=== PATIENT | female | born 1960 | race Caucasian/White ===

== ENCOUNTER 2017-03-09 10:40 | Emergency (ER) | payer SELFPAY ==
[2007-09-13 15:35] VITALS: BP 99/56
[~2017-03-09] VITALS: Ht 175.3 cm; Wt 113.6 kg
[~2017-03-09 10:40] MED LIST: ADVAIR IH; ALBUTEROL0.09 MG/A1 IH; AMOXICILLIN 50500 MG PO; AMOXICILLIN 8751 TAB PO; CARAFATE 1GM1 G PO; CIPRO 100MG TA100 MG PO; DOXYCYCLINE 10100 MG PO; FLEXERIL 1010 MG/TAB PO; FLEXERIL10 MG PO; FORADIL; IPRATROPIUM BROM3 M1 IH; MEDROL 4MG DOSPA4 MG PO; METFORMIN; NO HOME MEDICATIONS; NORCO 325 MG-51 TAB PO; PEPCID 20MG TAB20 MG PO; PERCOCET 5/321 UDTAB PO; PREDNISONE20 MG PO; PROAIR HFA0.09 MG/AC IH; PROVENTIL0.09 MG/A1 IH; RT ALBUTER2.5 MG/0.5 IH; SINGULAIR10 MG PO; TYLENOL EXTRA500 M1 PO; VENTOLIN0.09 MG IH; VICODIN 5/5001 UDTAB PO; ZITHROMAX 250M250 MG PO; [UNRECOGNIZED DRUG - OTHER]; arthritis med
[2017-03-09 10:43] VITALS: TEMP 99.1
[2017-03-09 11:43] LABS: INFLUENZA A NEGATIVE; INFLUENZA B NEGATIVE
[2017-03-09] MEDS ORDERED: ALBUTEROL0.83 MG/ML IH (13:28)
[2017-03-09] MEDS ORDERED: AMOXICILLIN 8751 TAB PO (13:28)
[2017-03-09 14:14] VITALS: BP 116/71; PULSE 95
== END 2017-03-09 14:15 | disposition home or self-care (01) ==
LOC: COL.ER 10:40
PROVIDERS: Family Medicine
DX: J20.9 Acute bronchitis, unspecified (principal); J44.9 Chronic obstructive pulmonary disease, unspecified

== ENCOUNTER 2017-12-11 20:06 | Emergency (ER) | payer BC ==
[2007-09-13 15:35] VITALS: BP 99/56
[~2017-12-11] VITALS: Ht 175.3 cm; Wt 110.9 kg
[~2017-12-11 20:06] MED LIST changes: +ALBUTEROL0.83 MG/ML IH
[2017-12-11 20:38] VITALS: TEMP 98.1
[2017-12-11 21:28] LABS: COLLECTION METHOD CLEAN CATCH
[2017-12-11] MEDS ORDERED: GLUCOPHAGE500 MG/TAB (21:31)
[2017-12-11] MEDS ORDERED: JANUVIA 100MG100 MG PO (21:31)
[2017-12-11] MEDS ORDERED: GLUCOTROL 5M5 MG/TAB (21:31)
[2017-12-11] MEDS ORDERED: TRULICITY0.75 MG/0. (21:32)
[2017-12-11] MEDS ORDERED: [UNRECOGNIZED DRUG - REMARK] (21:33)
[2017-12-11 21:35] LABS: BASO % 0.4 % (0.0-2.0); EOS # 0.2 (0.0-0.7); EOS % 1.9 % (0-4.0); GRAN # 6.4 (1.4-6.5); GRAN % 59.6 % (42.2-75.2); HEMATOCRIT 47.4 % (37.0-47.0); HEMOGLOBIN 16.1 g/dl (12.5-16.0); LYMPH # 3.3 (1.2-3.4); LYMPH % 30.4 % (20.0-51.0); MEAN CELL VOLUME 90 fl (80.0-100.0); MEAN CORPUSCULAR HEMOGLOBIN 30 pg (27.0-31.0); MEAN CORPUSCULAR HGB CONC 34 g/dl (33.0-37.0); MEAN PLATELET VOLUME 8.9 fl (7.4-10.4); MONO # 0.8 (0.1-0.6); MONO % 7.3 % (1.7-9.3); PLATELET COUNT 258 K/mm3 (130-400); RED BLOOD COUNT 5.29 M/mm3 (4.10-5.30); REDCELL DISTRIBUTION WIDTH-CV 12.7 % (11.5-14.5)
[2017-12-11 21:37] LABS: PH 5 (5-8); SQUAMOUS EPITHELIAL 0-2 /hpf; URINE APPEARANCE Clear; URINE BACTERIA Rare /hpf; URINE BILIRUBIN Negative (NEGATIVE); URINE BLOOD Negative (NEGATIVE); URINE COLOR Yellow; URINE GLUCOSE Negative (NEGATIVE); URINE KETONE Trace (NEGATIVE); URINE LEUKOCYTE ESTERASE Negative (NEGATIVE); URINE NITRATE Negative (NEGATIVE); URINE PROTEIN(semi-quant) Negative (NEGATIVE); URINE RBC 0-2 /hpf
[2017-12-11 21:41] LABS: ALBUMIN 4.2 gm/dL (3.5-5.0); BILIRUBIN,TOTAL 0.4 mg/dL (0.0-1.0); CALCIUM 9.1 mg/dL (8.4-10.2); CREATININE, serum 0.76 mg/dL (0.52-1.25); POTASSIUM 4.2 mmol/L (3.4-5.0); TOTAL PROTEIN 7.4 gm/dL (6.4-8.2)
[2017-12-11] MEDS ORDERED: ZOFRAN 4MG T4 MG/TAB PO (23:19)
[2017-12-11] MEDS ORDERED: BENTYL 20MG20 MG/TAB PO (23:19)
[2017-12-11 23:50] VITALS: BP 125/71; PULSE 82
== END 2017-12-11 23:50 | disposition home or self-care (01) ==
LOC: COL.ER 20:06
PROVIDERS: Emergency Medicine
DX: R10.31 Right lower quadrant pain (principal); R11.2 Nausea with vomiting, unspecified; E11.9 Type 2 diabetes mellitus without complications; K58.9 Irritable bowel syndrome, unspecified; F17.210 Nicotine dependence, cigarettes, uncomplicated; Z79.84 Long term (current) use of oral hypoglycemic drugs; Z90.49 Acquired absence of other specified parts of digestive tract; Z87.19 Personal history of other diseases of the digestive system
CPT/HCPCS: J0500; J2270; J2405; J7030; Q9967

== ENCOUNTER 2018-08-19 13:18 | Emergency (ER) | payer BC ==
[2007-09-13 15:35] VITALS: BP 99/56
[~2018-08-19] VITALS: Ht 175.3 cm; Wt 113.6 kg
[~2018-08-19 13:18] MED LIST changes: +BENTYL 20MG20 MG/TAB PO; +GLUCOPHAGE500 MG/TAB; +GLUCOTROL 5M5 MG/TAB; +JANUVIA 100MG100 MG PO; +TRULICITY0.75 MG/0.; +ZOFRAN 4MG T4 MG/TAB PO; +[UNRECOGNIZED DRUG - REMARK]
[2018-08-19 14:09] LABS: BASO % 0.3 % (0.0-2.0); EOS # 0.1 (0.0-0.7); EOS % 0.4 % (0-4.0); GRAN # 11.7 (1.4-6.5); GRAN % 78.9 % (42.2-75.2); HEMATOCRIT 46.7 % (37.0-47.0); HEMOGLOBIN 16.2 g/dl (12.5-16.0); LYMPH # 2.1 (1.2-3.4); LYMPH % 14.1 % (20.0-51.0); MEAN CELL VOLUME 89 fl (80.0-100.0); MEAN CORPUSCULAR HEMOGLOBIN 31 pg (27.0-31.0); MEAN CORPUSCULAR HGB CONC 35 g/dl (33.0-37.0); MEAN PLATELET VOLUME 8.8 fl (7.4-10.4); MONO # 0.8 (0.1-0.6); MONO % 5.6 % (1.7-9.3); PLATELET COUNT 306 K/mm3 (130-400); RED BLOOD COUNT 5.24 M/mm3 (4.10-5.30); REDCELL DISTRIBUTION WIDTH-CV 12.9 % (11.5-14.5)
[2018-08-19 14:18] LABS: CALCIUM 9.6 mg/dL (8.4-10.2); CREATININE, serum 0.66 (0.52-1.25); POTASSIUM 4.4 mmol/L (3.4-5.0)
[2018-08-19] MEDS ORDERED: NORCO 325 MG-51 TAB PO (16:32)
[2018-08-19 17:29] VITALS: BP 138/68; PULSE 79; TEMP 98
== END 2018-08-19 17:49 | disposition home or self-care (01) ==
LOC: COL.ER 13:18
PROVIDERS: Emergency Medicine
DX: S42.302A Unspecified fracture of shaft of humerus, left arm, initial encounter for closed fracture (principal); W01.0XXA Fall on same level from slipping, tripping and stumbling without subsequent striking against object, initial encounter; Y92.009 Unspecified place in unspecified non-institutional (private) residence as the place of occurrence of the external cause
CPT/HCPCS: J1885; J3010; J7030; Q4021

== ENCOUNTER 2019-01-21 09:59 | Inpatient (IN) | payer BC ==
[~2019-01-21] VITALS: Ht 175.3 cm; Wt 112.0 kg
[~2019-01-21 09:59] MED LIST changes: -GLUCOPHAGE500 MG/TAB; +GLUCOPHAGE500 MG/TAB PO; -GLUCOTROL 5M5 MG/TAB; +GLUCOTROL 5M5 MG/TAB PO; -TRULICITY0.75 MG/0.; +TRULICITY0.75 MG/0. SQ
[2019-01-21] MEDS ORDERED: TRELEGY ELLIPT1 EACH IH (13:53)
[2019-01-21 15:22] LABS: ARTERIAL BLD GAS O2 SATURATION 92.5 % (92-100); ARTERIAL BLD GAS TCO2 CT 25.7; ARTERIAL BLOOD GAS BASE EXCESS -0.1 (-2-2); ARTERIAL BLOOD GAS HCO3 24.4 meq/L (22-26); ARTERIAL BLOOD GAS PCO2 39.8 mmHg (35-45); ARTERIAL BLOOD GAS PO2 62.9 mmHg (80-100); ARTERIAL BLOOD GAS pH 7.41 (7.35-7.45)
[2019-01-21 15:27] LABS: BASO % 0.5 % (0.0-2.0); EOS % 0.4 % (0-4.0); GRAN # 4.7 (1.4-6.5); GRAN % 59.9 % (42.2-75.2); HEMATOCRIT 46.3 % (37.0-47.0); HEMOGLOBIN 15.4 g/dl (12.5-16.0); LYMPH # 2.3 (1.2-3.4); MEAN CELL VOLUME 90 fl (80.0-100.0); MEAN CORPUSCULAR HEMOGLOBIN 30 pg (27.0-31.0); MEAN CORPUSCULAR HGB CONC 33 g/dl (33.0-37.0); MEAN PLATELET VOLUME 9.1 fl (7.4-10.4); MONO # 0.8 (0.1-0.6); MONO % 9.8 % (1.7-9.3); PLATELET COUNT 201 K/mm3 (130-400); RED BLOOD COUNT 5.12 M/mm3 (4.10-5.30); REDCELL DISTRIBUTION WIDTH-CV 13.5 % (11.5-14.5)
[2019-01-21 15:44] LABS: ALBUMIN 4.1 gm/dL (3.5-5.0); BILIRUBIN,TOTAL 0.5 mg/dL (0.0-1.0); CALCIUM 9.1 mg/dL (8.4-10.2); CREATININE, serum 0.66 (0.52-1.25); POTASSIUM 4.1 mmol/L (3.4-5.0); TOTAL PROTEIN 7.5 gm/dL (6.4-8.2)
[2019-01-21 16:00] VITALS: BP 142/91; PULSE 86; TEMP 97.9
[2019-01-21 20:00] VITALS: BP 127/72; PULSE 94; TEMP 98.4
[2019-01-21 20:19] VITALS: BP 118/74; PULSE 95; TEMP 97.6
[2019-01-21 20:37] LABS: ARTERIAL BLD GAS O2 SATURATION 93.3 % (92-100); ARTERIAL BLD GAS TCO2 CT 25.1; ARTERIAL BLOOD GAS BASE EXCESS -0.1 (-2-2); ARTERIAL BLOOD GAS HCO3 23.9 meq/L (22-26); ARTERIAL BLOOD GAS PCO2 37.3 mmHg (35-45); ARTERIAL BLOOD GAS PO2 64.1 mmHg (80-100); ARTERIAL BLOOD GAS pH 7.43 (7.35-7.45)
[2019-01-22] VITALS: BP 123/82; PULSE 82; TEMP 98
[2019-01-22 04:00] VITALS: BP 132/79; PULSE 85; TEMP 98.5
[2019-01-22 05:15] LABS: ARTERIAL BLD GAS O2 SATURATION 96.5 % (92-100); ARTERIAL BLD GAS TCO2 CT 21.5; ARTERIAL BLOOD GAS BASE EXCESS -3.2 (-2-2); ARTERIAL BLOOD GAS HCO3 20.4 meq/L (22-26); ARTERIAL BLOOD GAS PO2 78.4 mmHg (80-100); ARTERIAL BLOOD GAS pH 7.41 (7.35-7.45)
[2019-01-22 06:50] LABS: CALCIUM 8.9 mg/dL (8.4-10.2); CREATININE, serum 0.52 (0.52-1.25); POTASSIUM 4.2 mmol/L (3.4-5.0)
[2019-01-22 06:51] LABS: HEMOGLOBIN 14.5 g/dl (12.5-16.0); MEAN CELL VOLUME 91 fl (80.0-100.0); MEAN CORPUSCULAR HEMOGLOBIN 31 pg (27.0-31.0); MEAN CORPUSCULAR HGB CONC 34 g/dl (33.0-37.0); MEAN PLATELET VOLUME 9.4 fl (7.4-10.4); PLATELET COUNT 201 K/mm3 (130-400); RED BLOOD COUNT 4.74 M/mm3 (4.10-5.30); REDCELL DISTRIBUTION WIDTH-CV 13.2 % (11.5-14.5)
[2019-01-22 08:00] VITALS: BP 130/77; PULSE 87; TEMP 97.5
[2019-01-22 08:00] LABS: BAND 10 % (0-10); LYMPHOCYTE 19 % (20.0-51.0); NEUTROPHILS 69 % (42.0-75.2); PLATELET ESTIMATE NORMAL (NORMAL)
[2019-01-22 12:00] VITALS: BP 122/71; PULSE 87; TEMP 98
[2019-01-22 16:00] VITALS: BP 141/83; PULSE 83; TEMP 97.5
[2019-01-22 20:00] VITALS: BP 128/74; PULSE 78; TEMP 97.1
[2019-01-23] VITALS: BP 111/71; PULSE 74; TEMP 97.5
[2019-01-23 04:00] VITALS: BP 105/68; PULSE 71; TEMP 97.5
[2019-01-23 05:23] LABS: BASO % 0.1 % (0.0-2.0); EOS % 0.2 % (0-4.0); GRAN # 4.7 (1.4-6.5); GRAN % 49.7 % (42.2-75.2); HEMATOCRIT 42.5 % (37.0-47.0); HEMOGLOBIN 14.3 g/dl (12.5-16.0); LYMPH % 42.7 % (20.0-51.0); MEAN CELL VOLUME 90 fl (80.0-100.0); MEAN CORPUSCULAR HEMOGLOBIN 30 pg (27.0-31.0); MEAN CORPUSCULAR HGB CONC 34 g/dl (33.0-37.0); MONO # 0.7 (0.1-0.6); PLATELET COUNT 229 K/mm3 (130-400); RED BLOOD COUNT 4.74 M/mm3 (4.10-5.30); REDCELL DISTRIBUTION WIDTH-CV 13.2 % (11.5-14.5)
[2019-01-23 05:38] LABS: CALCIUM 8.9 mg/dL (8.4-10.2); CREATININE, serum 0.66 (0.52-1.25); POTASSIUM 4.3 mmol/L (3.4-5.0)
[2019-01-23 08:00] VITALS: BP 139/84; PULSE 82; TEMP 98
[2019-01-23 12:00] VITALS: BP 127/75; PULSE 80; TEMP 97.6
[2019-01-23 16:00] VITALS: BP 125/82; PULSE 80; TEMP 98.4
[2019-01-23 20:00] VITALS: BP 144/77; PULSE 81; TEMP 97.8
[2019-01-24] VITALS: BP 136/84; PULSE 78; TEMP 98.7
[2019-01-24 03:34] VITALS: BP 134/80; PULSE 85
[2019-01-24 05:51] LABS: HEMATOCRIT 43.1 % (37.0-47.0); HEMOGLOBIN 14.1 g/dl (12.5-16.0); MEAN CELL VOLUME 90 fl (80.0-100.0); MEAN CORPUSCULAR HEMOGLOBIN 30 pg (27.0-31.0); MEAN CORPUSCULAR HGB CONC 33 g/dl (33.0-37.0); MEAN PLATELET VOLUME 9.1 fl (7.4-10.4); PLATELET COUNT 239 K/mm3 (130-400); RED BLOOD COUNT 4.78 M/mm3 (4.10-5.30); REDCELL DISTRIBUTION WIDTH-CV 13.2 % (11.5-14.5)
[2019-01-24 07:01] LABS: BAND 1 % (0-10); EOSINOPHIL 1 % (0-4); LYMPHOCYTE 44 % (20.0-51.0); NEUTROPHILS 50 % (42.0-75.2); PLATELET ESTIMATE NORMAL (NORMAL)
[2019-01-24 11:13] VITALS: BP 131/71; PULSE 84; TEMP 97.9
[2019-01-24] MEDS ORDERED: TESSALON P100 MG/CAP PO (12:02)
[2019-01-24] MEDS ORDERED: PREDNISONE20 MG PO (12:03)
[2019-01-24] MEDS ORDERED: ROBITUSSIN A-C S1 M1 PO (12:03)
== END 2019-01-24 17:15 | disposition home or self-care (01) | DRG 190 ==
LOC: COL.ER 09:59 → MEDICAL 12:29 → ICU 12:29 → MEDICAL 01-24 00:25
PROVIDERS: Hospitalist; Internal Medicine Pulmonary Disease; Nurse Practitioner Family; ADMIT Internal Medicine
PROC: 02HV33Z Insertion of Infusion Device into Superior Vena Cava, Percutaneous Approach (ICD-10-PCS; principal; 2019-01-21)
PROC: 02PYX3Z Removal of Infusion Device from Great Vessel, External Approach (ICD-10-PCS; 2019-01-24)
PROC: 5A09357 Assistance with Respiratory Ventilation, Less than 24 Consecutive Hours, Continuous Positive Airway Pressure (ICD-10-PCS; 2019-01-24)
DX: J44.1 Chronic obstructive pulmonary disease with (acute) exacerbation (principal); J96.01 Acute respiratory failure with hypoxia; J06.9 Acute upper respiratory infection, unspecified; K57.30 Diverticulosis of large intestine without perforation or abscess without bleeding; B97.4 Respiratory syncytial virus as the cause of diseases classified elsewhere; K58.9 Irritable bowel syndrome, unspecified; F17.210 Nicotine dependence, cigarettes, uncomplicated; Z66 Do not resuscitate; E66.01 Morbid (severe) obesity due to excess calories; E11.65 Type 2 diabetes mellitus with hyperglycemia; K44.9 Diaphragmatic hernia without obstruction or gangrene; G47.33 Obstructive sleep apnea (adult) (pediatric); K21.9 Gastro-esophageal reflux disease without esophagitis; Z90.710 Acquired absence of both cervix and uterus; Z85.41 Personal history of malignant neoplasm of cervix uteri; Z79.84 Long term (current) use of oral hypoglycemic drugs; Z79.51 Long term (current) use of inhaled steroids; Z90.49 Acquired absence of other specified parts of digestive tract; Z23 Encounter for immunization
CPT/HCPCS: 99222-AI; 99231-AI; 99239; A4216; C1751; J0456; J0696; J1650; J1815; J2920; J7050; J7512

== ENCOUNTER 2023-10-05 09:42 | Emergency (ER) | payer MEDICARE, OTHER ==
[~2023-10-05] VITALS: Ht 175.3 cm; Wt 116.4 kg
[~2023-10-05 09:42] MED LIST changes: +ROBITUSSIN A-C S1 M1 PO; +TESSALON P100 MG/CAP PO; +TRELEGY ELLIPT1 EACH IH
[2023-10-05 09:46] VITALS: TEMP 97.7
[2023-10-05] MEDS ORDERED: NS 1,000 ML IV ONE (10:15)
[2023-10-05] MEDS ORDERED: Ondansetron 4 MG/2 ML VIAL IV ONE (10:15)
[2023-10-05] MEDS ORDERED: Morphine 4 MG/ML VIAL IV PRN (10:15)
[2023-10-05 10:37] LABS: BASO # 0.1 K/mm3 (0.0-0.2); BASO % 0.3 % (0.0-2.0); GRAN # 12.7 K/mm3 (1.4-6.5); GRAN % 81.3 % (42.2-75.2); HEMOGLOBIN 10.6 g/dl (12.5-16.0); LYMPH # 1.9 K/mm3 (1.2-3.4); LYMPH % 12.3 % (20.0-51.0); MEAN CELL VOLUME 90 fl (80.0-100.0); MEAN CORPUSCULAR HEMOGLOBIN 30 pg (27-31); MEAN CORPUSCULAR HGB CONC 33 g/dl (33.0-37.0); MONO # 0.8 K/mm3 (0.1-0.6); MONO % 4.9 % (1.7-9.3); PLATELET COUNT 259 K/mm3 (130-400); RED BLOOD COUNT 3.53 M/mm3 (4.10-5.30); REDCELL DISTRIBUTION WIDTH-CV 14.6 % (11.5-14.5)
[2023-10-05 10:38] LABS: HEMATOCRIT 31.7 % (37.0-47.0)
[2023-10-05] MEDS ORDERED: Mag/Al Hydrox/Simeth Susp 30 ML CUP PO ONE (10:45)
[2023-10-05 11:12] LABS: ALBUMIN 3.3 g/dL (3.4-4.8); BILIRUBIN,TOTAL 0.4 mg/dL (0.2-1.2); C-REACTIVE PROTEIN 0.42 mg/dL (0.00-0.50); CALCIUM 9.1 mg/dL (8.4-10.2); CREATININE, serum 0.82 mg/dL (0.57-1.11); POTASSIUM 4.6 mEq/L (3.5-4.5); TOTAL PROTEIN 6.1 g/dl (6.2-8.1)
[2023-10-05] MEDS ORDERED: Iohexol 300 - 100 ML VIAL IV ONE (12:00)
[2023-10-05] MEDS ORDERED: NS 100 ML IV SCH (12:00)
[2023-10-05] MEDS ORDERED: fentaNYL 50 MCG/ML 2 ML VIAL IV ONE (12:45)
[2023-10-05] MEDS ORDERED: NORCO 325 MG-51 TAB PO (13:05)
[2023-10-05 13:58] VITALS: BP 145/61; PULSE 80
== END 2023-10-05 13:59 | disposition home or self-care (01) ==
LOC: COL.ER 09:42
PROVIDERS: Emergency Medicine
DX: S20.212A Contusion of left front wall of thorax, initial encounter (principal); E11.9 Type 2 diabetes mellitus without complications; C81.90 Hodgkin lymphoma, unspecified, unspecified site; W19.XXXA Unspecified fall, initial encounter
CPT/HCPCS: A9284; J2270; J2405; J3010; J7030; Q9967